=== PATIENT | female | born 1940 ===

== ENCOUNTER → 2017-05-27 | Emergency (ER) | payer OTHER ==
[~2017-05-27] VITALS: Ht 152.4 cm; Wt 45.4 kg
[~2017-05-27] MED LIST: ASPIR 8181 MG; CARBIDOPA-LEVO1 EAC4; DICLOFENAC SODI50 MG PO; GLIPIZIDE10 MG PO; LIPITOR40 MG; METFORMIN HCL500 MG PO; VASOTEC5 MG; VYTORIN 10-40 M1 TAB PO
== END | disposition home or self-care (01) ==
LOC: ER 07:20
DX: S00.03XA Contusion of scalp, initial encounter (principal); S10.93XA Contusion of unspecified part of neck, initial encounter; S79.921A Unspecified injury of right thigh, initial encounter; W18.09XA Striking against other object with subsequent fall, initial encounter; Y93.89 Activity, other specified; Y92.018 Other place in single-family (private) house as the place of occurrence of the external cause; Y99.8 Other external cause status

== ENCOUNTER 2017-08-28 12:34 | Emergency (ER) | payer OTHER ==
[~2017-08-28] VITALS: Ht 160 cm; Wt 44.5 kg
[2017-08-28] MEDS ORDERED: ATORVASTATIN CA40 MG (13:14)
== END 2017-08-28 18:20 | disposition home or self-care (01) ==
LOC: ER 12:34
DX: S00.83XA Contusion of other part of head, initial encounter (principal); E11.65 Type 2 diabetes mellitus with hyperglycemia; W18.09XA Striking against other object with subsequent fall, initial encounter; Y93.89 Activity, other specified; Y92.018 Other place in single-family (private) house as the place of occurrence of the external cause; Y99.8 Other external cause status